=== PATIENT | female | born 1970 | race American Indian/Alaskan Native ===

== ENCOUNTER 2018-06-22 07:52 | Day surgery (SDC) | payer BC ==
[2018-06-22 08:26] VITALS: TEMP 98.1
[2018-06-22] MEDS ORDERED: Sodium Chloride 0.9% 1,000 ML IV SCH (09:00)
[2018-06-22] MEDS ORDERED: Propofol 10 mg/ml Inj (20 ML) ONE (09:01)
[2018-06-22 10:06] VITALS: PULSE 64; O2SAT 100
[2018-06-22 16:37] VITALS: BP 149/74; RESP 16
== END 2018-06-22 11:04 | disposition home or self-care (01) ==
LOC: ENDO 07:52
PROVIDERS: ATTEND Internal Medicine Gastroenterology
DX: Z12.11 Encounter for screening for malignant neoplasm of colon (principal); K64.1 Second degree hemorrhoids; E11.9 Type 2 diabetes mellitus without complications; I10 Essential (primary) hypertension; Z98.84 Bariatric surgery status
CPT/HCPCS: 45378; 82948; 84703; J2001; J2704; J7030